=== PATIENT | female | born 1965 | race Caucasian/White ===

== ENCOUNTER → 2022-03-09 | Day surgery (SDC) | payer OTHER ==
[~2022-03-09] VITALS: Ht 170.2 cm; Wt 83.9 kg
[~2022-03-09] MED LIST: IBUPROFEN800 MG PO; NORCO 5-325 TA1 EACH PO; ONDANSETRON ODT8 MG PO
[2022-03-09 09:07] LABS: HCT 42.4 % (37.0-47.0); HGB 13.8 g/dl (12.5-16.0); MCH 29.2 pg (25.0-31.0); MCHC 32.5 g/dL (32.0-36.0); MCV 89.6 fL (78.0-100.0); MPV 9.7 fL (6.0-9.5); RBC 4.73 M/uL (4.20-5.40); WBC 5.8 K/uL (4.0-10.5)
[2022-03-09 09:26] LABS: ALBUMIN 3.9 g/dL (3.4-5.0); BILIRUBIN - TOTAL 0.5 mg/dL (0.2-1.0); BUN/CREAT RATIO (CALC) 18.8 RATIO; CREATININE 0.64 mg/dL (0.51-0.95); GLOBULIN (CALCULATION) 3.5 g/dL; POTASSIUM 3.6 mmol/L (3.5-5.1); TOTAL PROTEIN 7.4 g/dL (6.4-8.2)
== END | disposition home or self-care (01) ==
LOC: FAS 08:30
PROVIDERS: Surgery
DX: K80.10 Calculus of gallbladder with chronic cholecystitis without obstruction (principal); R00.0 Tachycardia, unspecified; D51.0 Vitamin B12 deficiency anemia due to intrinsic factor deficiency; Z88.1 Allergy status to other antibiotic agents; Z88.5 Allergy status to narcotic agent
CPT/HCPCS: 36415; 74300; 80053; C1758; J1100; J1885; J2250; J2405; J2704; J2710; J3010; J7120; Q9967